=== PATIENT | female | born 1995 | race African-American/Black ===

== ENCOUNTER 2018-10-18 08:59 | Emergency (ER) | payer MEDICAID ==
[~2018-10-18] VITALS: Ht 160 cm; Wt 82.0 kg
[2018-10-18 09:12] VITALS: BP 133/75
== END 2018-10-18 13:05 | disposition home or self-care (01) ==
LOC: ER 09:24 → EDSEX 09:24 → ER 13:05
DX: S00.83XA Contusion of other part of head, initial encounter (principal); S16.1XXA Strain of muscle, fascia and tendon at neck level, initial encounter; Z91.018 Allergy to other foods; V43.52XA Car driver injured in collision with other type car in traffic accident, initial encounter; Y93.89 Activity, other specified; Y92.411 Interstate highway as the place of occurrence of the external cause
CPT/HCPCS: 81025; 99284

== ENCOUNTER 2025-03-10 14:07 | Emergency (ER) | payer MEDICAID ==
[~2025-03-10] VITALS: Ht 160 cm; Wt 80.0 kg
[2025-03-10 14:12] VITALS: O2SAT 100
[2025-03-10] MEDS: PANTOPRAZOLE SODIUM 40 MG/VIAL IV STA (14:57)
[2025-03-10] MEDS: MAGNESIUM/ALUMINUM HYDROXIDE/SIMETHICONE 30ML UDC PO STA (14:57)
[2025-03-10] MEDS: ONDANSETRON HCL 4MG/2ML INJ IV STA (14:57)
[2025-03-10] MEDS: SODIUM CHLORIDE 0.9% 1,000 ML IV ONE (14:57)
[2025-03-10 15:08] LABS: BASOPHILS % 0.5 % (0.0-2.0); EOSINOPHILS % 1.4 % (0.0-5.0); HEMATOCRIT. 48.7 % (36.0-48.0); HEMOGLOBIN. 16.5 g/dL (12.0-16.0); LYMPHOCYTES % 25.2 % (20.0-50.0); MEAN CORPUSCULAR HGB CONC 33.8 g/dL (31.0-37.0); MEAN CORPUSCULAR VOLUME 94.8 fL (81.0-99.0); MEAN PLATELET VOLUME 7.6 fl (7.4-10.4); NEUTROPHILS % 62.9 % (40.0-76.0); PLATELET 351 x1000/uL (130-400); RED BLOOD CELL COUNT 5.14 mill/uL (4.2-5.4); RED CELL DISTRIBUTION WIDTH 13.7 % (11.6-14.6); WHITE BLOOD COUNT 10.4 x1000/uL (4.5-11.0)
[2025-03-10 15:14] LABS: CHLORIDE 108 mEq/L (98-107); SODIUM 141 mEq/L (136-145)
[2025-03-10 15:15] LABS: CALCIUM 10.3 mg/dL (8.7-10.4); CARBON DIOXIDE 23 mEq/L (21-32)
[2025-03-10 15:20] LABS: CREATININE 1.3 mg/dL (0.6-1.0); GLUCOSE 77 mg/dL (70-105); UREA NITROGEN BLOOD 9 mg/dL (9-23)
[2025-03-10 15:22] LABS: ALANINE AMINOTRANSFERASE 22 IU/L (10-49); ALBUMIN 5.2 g/dL (3.2-4.8); ASPARTATE AMINOTRANSFERASE 22 IU/L (<34); BILIRUBIN DIRECT 0.2 mg/dL (<=3.0); BILIRUBIN TOTAL 0.7 mg/dL (0.1-1.0); PROTEIN TOTAL 8.1 g/dL (6.0-8.3)
[2025-03-10 15:23] LABS: HCG SCREEN NEGATIVE
[2025-03-10 15:32] LABS: INR 1.1; PROTHROMBIN TIME 11.3 sec (9.6-11.0)
[2025-03-10] MEDS ORDERED: ONDA-239 PO (16:22)
[2025-03-10 16:31] VITALS: BP 125/88; PULSE 89; RESP 18; TEMP 36.7; O2SAT 100
== END 2025-03-10 16:32 | disposition home or self-care (01) ==
LOC: ER 14:07
DX: R10.84 Generalized abdominal pain (principal); E78.00 Pure hypercholesterolemia, unspecified; Z91.012 Allergy to eggs
CPT/HCPCS: 99285; 74176; 96365; 96375; 80076; 80048; 84703; 83690; 85025; 85610; 86850; 86900; 86901; 36415; J2405; J2470; J7030